=== PATIENT | female | born 1950 | race Caucasian/White ===

== ENCOUNTER 2017-11-30 13:30 | Emergency (ER) | payer MEDICARE, SELFPAY ==
[2017-11-30] VITALS (8 sets, daily range): BP systolic 174–222; BP diastolic 76–87; PULSE 74–89; RESP 12–18; TEMP 36.9; O2SAT 95–98; BMI 31.1
[2017-11-30] MEDS: 0.9% Normal Saline 1,000 ML 150 ML IV (14:34)
[2017-11-30 14:42] LABS: Absolute Lymphocyte Count 1.27 X10^3/ul (0.83-4.51); Absolute Neutrophil Count 3.1 X10^3/uL (2.0-7.7); Basophil# 0.01 X10^3/uL; Basophil% 0.2 % (0-1); Eosinophil# 0.17 X10^3/uL; Eosinophils% 3.5 % (0-5); Hematocrit 41.4 % (37-47); Hemoglobin 12.9 g/dl (12.0-15.0); Lymphocyte # 1.27 X10^3/ul (4.0); Lymphocyte % 26.5 % (19-41); Mean Corp Hgb Conc 31.2 g/gl (32-36); Mean Corpuscular Hgb 28.7 pg (27.0-32.0); Mean Corpuscular Volume 92.2 fL (81-99); Monocyte# 0.24 X10^3/uL; Neutrophil # 3.11 X10^3/uL (2.7-7.7); Neutrophil % 64.8 % (47-70); Platelet Count 149 K/mm3 (150-450); RBC Distribution Width SD 56.9 fl (35.1-43.9); Red Blood Count 4.49 M/mm3 (4.2-5.4); White Blood Count 4.8 K/mm3 (4.4-11.0)
[2017-11-30 14:43] LABS: POSITIVE COUNT NO; POSITIVE DIFFERENTIAL NO; POSITIVE MORPHOLOGY NO
[2017-11-30 14:45] LABS: Anion Gap 9 (5-15); BUN 18 mg/dL (7-18); BUN/Creat Ratio 16.4 RATIO (10-20); Calcium,Total 9.3 mg/dL (8.5-10.1); Chloride 101 mmol/L (98-107); EST Glomerular Filtration Rate 53 mL/min (>60); Est Glom Filt Rate - Afr Amer 64 mL/min (>60); Estimated Creatinine Clearance 48.26 ml/min; Glucose 247 mg/dL (74-106); Potassium 4.3 mmol/L (3.5-5.1); Sodium Level 137 mmol/L (136-145)
[2017-11-30 15:28] LABS: Mucous, Urine 0 SEEN /hpf (<or=2+)
[2017-11-30 15:29] LABS: Color, Urine Yellow (Yellow); Glucose, Dipstick 50 mg/dl (Normal); Ketone-Dipstick Negative (Negative); Leukocyte Esterase-Dipstick 500 /ul (Negative); Nitrite-Dipstick Positive (Negative); Occult Blood-Urine 150 /ul (Negative); Protein-Dipstick 100 mg/dl (Negative); Specific Gravity, Urine 1.015 (1.002-1.030); Urine Bilirubin Dipstick Negative (Negative); Urine Clarity Clear (Clear); Urine Urobilinogen 1 mg/dl (Normal); Urine pH 6.5 (5.0 - 8.0)
[2017-11-30 15:40] LABS: Red Blood Cells-Urine 0-5 SEEN /hpf (0-5); Squamous Epithelial Cells - UA 5-10 SEEN /hpf (5-10); White Blood Cells 25-50 SEEN /hpf (0-5)
[2017-11-30 15:41] LABS: Bacteria 3+ /hpf (None Seen)
[2017-11-30] MEDS: Ciprofloxacin 500 MG Tablet PO (16:58)
[2017-11-30] MEDS: cloNIDine HCl 0.1 MG Tablet PO (17:05)
--- NOTE | 2017-11-30 17:25 | ED.VISSUMM ---
- ER Visit Summary Date of Service: 11/30/17 Chief Complaint: Left flank pain History of Present Illness: The patient is a 67 F currently on oral chemotherapy for stomach cancer. She is being treated through [facility]. Patient is a 3-week history of left flank pain. She was seen at [facility] on November 12 where labs and urine tests were unremarkable. CT was performed at that time. It did not show significant change in her tumor. Patient denies fever. She had some chills today. She is also noted some mild dysuria. In addition to the stomach cancer, patient also has a history of diabetes, hypertension, and high cholesterol. Physical Examination: Vital signs on arrival include a blood pressure of 174/85, temperature 98.4, heart rate 87, respiratory rate 18, socks 95% on room air. Patient is lying in bed. She appears somewhat pale. She is in no acute distress. Head neck examination is normal. Heart is regular rate and rhythm. Lung sounds are clear. Abdomen is soft with no anterior abdominal tenderness. Hypoactive but present bowel sounds are noted. Back examination does reveal left CVA tenderness. Test Results: CBC was normal white count. Platelet count is 149,000. Chemistry studies reveal creatinine 1.10 glucose of 247. Urinalysis is positive for nitrites with 25-50 white cells and 3+ bacteria. Emergency Department Course and Treatment: Urine is sent for culture. She has received mild IV fluids here. Blood pressure continued to be elevated and did elevate to over 200. She was given 20 mg of IV labetalol. Blood pressure came down to the 170s systolic but then did increase to the 210-220 range again. At this time she is given 0.1 mg of p.o. clonidine. I was able to review notes from her last 2 visits at [facility] emergency rooms. At that time it appears her systolic blood pressures have been in the 170s. Patient will be treated with a course of Cipro to treat pyelonephritis. She was advised to contact her oncologist tomorrow morning to see if she should continue her chemotherapy pills this week. She is to recheck her blood pressure daily. Treatment Plan: [] Disposition: Discharge Impression: 1. Pyelonephritis 2. Hypertension This note was generated with [employer] dictation software. It may contain incorrect words, spelling, and punctuation that were not noted in review of the chart prior to signing ED Disposition - Plan for ED Patient: Chief Complaint: Flank Pain Referrals: Care Physician,No Primary [Primary Care Provider] -
--- NOTE | 2017-11-30 17:58 | ED.DEP ---
ED Disposition - Plan for ED Patient: Disposition: Home or Assisted Living Chief Complaint: Flank Pain Instructions: ED Kidney Infec Female Prescriptions: Ciprofloxacin [Cipro] 500 mg PO BID #14 tablet Additional Instructions: Follow-up with your oncologist as discussed.
== END 2017-11-30 18:05 | disposition home or self-care (01) ==
PROVIDERS: Emergency Provider Emergency Medicine
DX: N12 Tubulo-interstitial nephritis, not specified as acute or chronic (principal); I10 Essential (primary) hypertension; C16.9 Malignant neoplasm of stomach, unspecified; E11.9 Type 2 diabetes mellitus without complications; E78.00 Pure hypercholesterolemia, unspecified; Z90.49 Acquired absence of other specified parts of digestive tract; Z79.84 Long term (current) use of oral hypoglycemic drugs; Z79.899 Other long term (current) drug therapy
CPT/HCPCS: 80048; 81001; 85025; 87086; 87088; 87186; 96361; 96374; 99285; J7030; A4216

== ENCOUNTER → 2020-12-28 | Outpatient (CLI) | payer MEDICARE, MEDICAID, SELFPAY ==
[2020-12-28 08:51] LABS: Prothrombin Time (Protime)PT. 12.6 SECONDS (11.7-14.9)
== END | disposition home or self-care (01) ==
LOC: LABSPEC 08:56
DX: C49.A2 Gastrointestinal stromal tumor of stomach (principal)
CPT/HCPCS: 85610